=== PATIENT | male | born 1945 | race Caucasian/White ===

== ENCOUNTER 2022-04-02 10:16 | Inpatient (IN) | payer OTHER, MEDICARE ==
[~2022-04-02] VITALS: Ht 167.6 cm; Wt 62.7 kg
[~2022-04-02 10:16] MED LIST: ATOR40TA72 PO; CITA20TA26 PO; FLO0.4C PO; METO-292 PO; PANT40TA54 PO
[2022-04-02] MEDS ORDERED: iohexol 300mg/ml 100ml inj. ONE (12:59)
--- NOTE | 2022-04-02 13:44 | NUR ---
Patient symptoms have resolves so decision made with family, Dr Perez and Dr Philippe to not give Thrombolytic. Dr Guevara notified.
--- NOTE | 2022-04-02 14:00 | NUR ---
DR SULLIVAN AND ADRIAN AT BEDSIDE ,TELE NEURO MD RECOMMENDED TPA ,PT IS TALKING TO DR SULLIVAN AOX4 COHERENT ,NO CONFUSION NOTED ,NEGATIVE ON STROKE .PT FAMILY AT BEDSIDE ,FINALLY DECIDED NO ON TPA [employer] AT BEDSIDE WELL. PER DR CLEMENTS ,ADRIAN OKAY TO ACCESS THE CHEMO PORT AND DRAW BLD.WILL FOLLOW THE ORDERS.
[2022-04-02 14:06] LABS: BASOPHILS % (AUTO) 0.2 % (0-1); EOSINOPHILS % (AUTO) 0.1 % (0-6); HEMOGLOBIN 9.7 g/dl (14.0-17.9); LYMPHOCYTES # (AUTO) 0.3 X10'3 (1.1-4.8); LYMPHOCYTES % (AUTO) 4.5 % (21-51); MEAN CORPUSCULAR HGB CONC 32.5 g/dL (33.0-36.5); MEAN CORPUSCULAR VOLUME 80.1 FL (78-98); MEAN PLATELET VOLUME 7.1 FL (7.4-10.4); MONOCYTES # (AUTO) 0.6 X10'3 (0-0.9); MONOCYTES % (AUTO) 8.2 % (2-12); NEUTROPHILS # (AUTO) 6.8 X10'3 (1.8-7.7); PLATELET COUNT 354 X10'3 (140-440); RED BLOOD COUNT 3.75 X10'6 (4.70-6.10); RED CELL DISTRIBUTION WIDTH 16.1 % (11.5-14.5); WHITE BLOOD COUNT 7.8 X10'3 (4.5-11.0)
[2022-04-02] MEDS ORDERED: ondansetron/PF 4mg/2ml inj IV ONE (14:20)
[2022-04-02 14:21] LABS: APTT 27 SECONDS (22-32)
[2022-04-02 14:24] LABS: ALANINE AMINOTRANSFERASE 19 U/L (12-78); ALBUMIN 2.5 G/DL (3.4-5.0); ALBUMIN/GLOBULIN RATIO 0.7 (1.1-1.5); ALKALINE PHOSPHATASE 96 IU/L (46-116); ANION GAP 6 (8-16); ASPARTATE AMINO TRANSFERASE 14 U/L (10-37); BILIRUBIN,TOTAL 0.4 MG/DL (0.1-1.0); BLOOD UREA NITROGEN 13 MG/DL (7-18); BUN/CREATININE RATIO 21.3 (5.4-32.0); CALCIUM 9.1 MG/DL (8.5-10.1); CHLORIDE 99 MMOL/L (99-107); CREATININE 0.61 MG/DL (0.60-1.10); GLUCOSE 110 MG/DL (70-104); POTASSIUM 3.5 MMOL/L (3.5-5.1); SODIUM 134 MMOL/L (135-145); TOTAL CARBON DIOXIDE 29.2 MMOL/L (24-32); TOTAL PROTEIN 6.1 G/DL (6.4-8.2); eGFR > 90 ML/MIN
[2022-04-02] MEDS ORDERED: acetaminophen 1,000mg/100ml IV 100 ML IV ONE (14:40)
--- NOTE | 2022-04-02 15:53 | NUR ---
IR team to patient bedside, J Tube flushed serveral times with 3ml syringe. 60ml of tap water flushed through tube without resistance. Report given to RN and MD.
--- NOTE | 2022-04-02 17:30 | NUR ---
WHILE PRIMARY RN WAS AT BREAK ,PATRICA RELIEVING RN PAGED THE PICC LINE NURSE FOR IV PLACEMENT .
[2022-04-02] MEDS ORDERED: METO10TA3 PO (17:57)
[2022-04-02] MEDS ORDERED: PER5325T PO (17:59)
[2022-04-02] MEDS ORDERED: HYDROcodone/acetaminophen 5mg/325mg tablet PO PRN (18:30)
[2022-04-02] MEDS ORDERED: PERFLUTREN PROTEIN-A MICROSPHR (Optison) 0.22 MG/ML 3ML VIAL IV ONE (18:30)
[2022-04-02] MEDS ORDERED: bisacodyl 10mg suppository rectal RC PRN (18:30)
[2022-04-02] MEDS ORDERED: metoclopramide 5 mg/ml inj IV PRN (18:30)
[2022-04-02] MEDS ORDERED: HYDROcodone/acetaminophen 10/325mg tab PO PRN (18:30)
[2022-04-02] MEDS ORDERED: acetaminophen 650mg rectal suppository RC PRN (18:30)
[2022-04-02] MEDS ORDERED: acetaminophen 325mg tablet GT PRN ×2 (18:30)
[2022-04-02] MEDS ORDERED: potassium CL 10mEq/100ml bag 100 ML IV PRN (18:30)
[2022-04-02] MEDS ORDERED: magnesium 2GM in 50ml NS 50 ML IV PRN (18:30)
[2022-04-02] MEDS ORDERED: ondansetron/PF 4mg/2ml inj IV PRN (18:30)
[2022-04-02] MEDS ORDERED: magnesium Cl slow-release 64mg tablet PO PRN (18:30)
[2022-04-02] MEDS ORDERED: magnesium 4gm in 100ml NS 100 ML IV PRN (18:30)
[2022-04-02] MEDS ORDERED: ondansetron 4mg rapidly disintigrating tab PEG PRN (18:30)
[2022-04-02] MEDS ORDERED: mag hydrox/Alum hydrox/simeth 30ml oral suspension PO PRN (18:30)
[2022-04-02] MEDS ORDERED: magnesium hydroxide 30ml (MOM) UD suspension GT PRN (18:30)
[2022-04-02] MEDS ORDERED: POTASSIUM BICARB 20meq eff tab 20 MEQ TABLET.EFF PO PRN ×2 (18:30)
[2022-04-02 19:12] LABS: CLARITY,URINE SLIGHTLY CLOUDY (Clear); COLOR,URINE YELLOW (Yellow); GLUCOSE, URINE NEGATIVE (Neg); KETONES,URINE 15 mg/dl (Neg); LEUKOCYTE ESTERASE ,URINE TRACE (Neg); NITRITES, URINE NEGATIVE (Neg); OCCULT BLOOD,URINE NEGATIVE (Neg); PH,URINE >=9.0 (4.8-8.0); PROTEIN,URINE 30 mg/dl (Neg); UROBILINOGEN,URINE 0.2 E.U/dL (0.2-1.0)
[2022-04-02] MEDS ORDERED: iohexol 350MG/ML 100ml bottle IV ONE (19:13)
[2022-04-02 19:18] LABS: UA COLLECTION TYPE URINAL
[2022-04-02 19:21] LABS: MUCUS STRANDS FEW /LPF (Neg); SQUAMOUS EPITHELIAL CELL,UR MODERATE /LPF (FEW)
[2022-04-02 19:22] LABS: BACTERIA,URINE FEW /HPF (Neg)
[2022-04-02 19:23] LABS: AMORPHOUS PHOSPHATES 2+; RBC,URINE 0-2 /HPF (0-2)
[2022-04-02 19:37] LABS: MAGNESIUM 1.9 MG/DL (1.5-2.4); POTASSIUM 3.7 MMOL/L (3.5-5.1)
[2022-04-02] MEDS: K and/or MAG REPLACEMENT MC SCH (20:00)
[2022-04-02] MEDS ORDERED: docusate sod 100mg capsule PO SCH (20:00)
[2022-04-02] MEDS: potassium Cl 20mEq in NS 1,000 ML IV SCH (20:04)
--- NOTE | 2022-04-02 20:23 | NUR ---
PAGED DR. ALVARADO IN REGARDS OF FINDING ALTERNATIVE MED FOR FLOMAX. WAITNG FOR CALL BACK.
[2022-04-02] MEDS ORDERED: tamsulosin 0.4mg capsule PO SCH (21:00)
[2022-04-02] MEDS ORDERED: temazepam 15mg capsule PEG PRN (21:00)
[2022-04-02 21:59] VITALS: BP 141/55
[2022-04-03 02:00] VITALS: BP 142/62
[2022-04-03] MEDS ORDERED: iohexol 350 MG/1 ML 200ml bottle ONE (04:45)
[2022-04-03] MEDS ORDERED: docusate sodium 100mg/10ml UD cup JT SCH (06:49)
[2022-04-03 07:10] VITALS: BP 130/67
[2022-04-03 07:36] LABS: BASOPHILS % (AUTO) 0.2 % (0-1); EOSINOPHILS % (AUTO) 0.3 % (0-6); HEMOGLOBIN 9.1 g/dl (14.0-17.9); LYMPHOCYTES # (AUTO) 0.4 X10'3 (1.1-4.8); LYMPHOCYTES % (AUTO) 5.6 % (21-51); MEAN CORPUSCULAR HEMOGLOBIN 26.1 PG (27.0-31.0); MEAN CORPUSCULAR HGB CONC 32.3 g/dL (33.0-36.5); MEAN CORPUSCULAR VOLUME 80.9 FL (78-98); MEAN PLATELET VOLUME 7.6 FL (7.4-10.4); MONOCYTES # (AUTO) 0.7 X10'3 (0-0.9); MONOCYTES % (AUTO) 8.7 % (2-12); NEUTROPHILS # (AUTO) 6.6 X10'3 (1.8-7.7); NEUTROPHILS % (AUTO) 85.2 % (42-75); PLATELET COUNT 340 X10'3 (140-440); RED BLOOD COUNT 3.47 X10'6 (4.70-6.10); RED CELL DISTRIBUTION WIDTH 16.3 % (11.5-14.5); WHITE BLOOD COUNT 7.8 X10'3 (4.5-11.0)
--- NOTE | 2022-04-03 07:39 | NUR ---
TF/Malnutrition consult: Pt admitted w/ malfunctioning feeding tube. Attempted to visit pt though was sleeping and S/O not at bedside. Per ED note, pt had been vomiting [employer] after discharge 6 days ago. Presumably home TF has not been at goal if pt has been having recurrent emesis. Pt did have a significant amount of wt loss prior to receiving J-tube, an approximate 58% loss in seven months. Pt meets criteria for malnutrition given recent significant wt loss, likely inadequate nutrition delivery via Jtube r/t emesis, and moderate temporal wasting. See TF recs below. Will continue to monitor. Recommendations: 1) Continuous TF via jejunostomy using Vital AF with 60 mL/hr goal rate to provide 1440 mL total volume/day, 1728 kcal, 108 g protein, and 1168 mL water 2) No additional water flush at this time, Monitor serum Na 3) Prealbumin q Thursday/;Daily scaled weights 4) Routine bowel care 5) NPO per A[employer]IC[employer] CHEMIST recs HOME TF RECOMMENDATIONS: 1) Continuous TF via jejunostomy using Osmolite 1.2 or equivalent with 70 mL/hr goal rate. Begin at previously tolerated TF rate and advance by 20 mL Q8H as tolerated to goal rate 2) Additional 75 mL water flush Q4H 3) Outpatient RD to titrate to goal rate and adjust recommendations as appropriate based on patient's estimated nutrient needs Addendum: 04/03/22 at [address] Amended: Links added.
[2022-04-03 07:58] LABS: ALANINE AMINOTRANSFERASE 16 U/L (12-78); ALBUMIN 2.2 G/DL (3.4-5.0); ALBUMIN/GLOBULIN RATIO 0.6 (1.1-1.5); ALKALINE PHOSPHATASE 89 IU/L (46-116); ANION GAP 8 (8-16); ASPARTATE AMINO TRANSFERASE 14 U/L (10-37); BILIRUBIN,TOTAL 0.4 MG/DL (0.1-1.0); BLOOD UREA NITROGEN 15 MG/DL (7-18); BUN/CREATININE RATIO 21.1 (5.4-32.0); CALCIUM 8.7 MG/DL (8.5-10.1); CHLORIDE 103 MMOL/L (99-107); CREATININE 0.71 MG/DL (0.60-1.10); GLUCOSE 102 MG/DL (70-104); MAGNESIUM 2.2 MG/DL (1.5-2.4); POTASSIUM 4.2 MMOL/L (3.5-5.1); SODIUM 135 MMOL/L (135-145); TOTAL CARBON DIOXIDE 24.1 MMOL/L (24-32); TOTAL PROTEIN 5.6 G/DL (6.4-8.2); eGFR > 90 ML/MIN
[2022-04-03] MEDS: K and/or MAG REPLACEMENT MC SCH (08:00)
[2022-04-03] MEDS ORDERED: citalopram 20mg tablet PO SCH (08:00)
[2022-04-03] MEDS: tamsulosin 0.4mg capsule PO SCH ×2 (08:00→08:08)
[2022-04-03] MEDS: potassium Cl 20mEq in NS 1,000 ML IV SCH ×2 (08:06→14:30)
[2022-04-03 09:01] LABS: PREALBUMIN 14.7 MG/DL (19-36)
[2022-04-03 12:16] VITALS: BP 143/62
--- NOTE | 2022-04-03 14:16 | NUR ---
PAGER ID: [phone] MESSAGE: [phone] Katie Salazar: Dr. Kohler at bedside wondering if patient is able to DC home? thanks, momo [phone]
--- NOTE | 2022-04-03 14:39 | NUR ---
Page sent to Angio... [phone] Katie Salazar: is anyone available to de-access a port? thank you! momo
[2022-04-03] MEDS ORDERED: heparin sodium, porcine/PF 100unit/ml 5ML syringe IV ONE (14:55)
--- NOTE | 2022-04-03 16:11 | NUR ---
Deaccessed holly cath to R chest needle intact per protocol with 20ml NS flush and 5ml of 100units/1ml of Heparin flush per protocol. Pt tolerated procedure well. bandaide applied to holly cath site.
--- NOTE | 2022-04-03 16:24 | NUR ---
Patient stable and appropriate for discharge home with . IV removed, port-a-cath de-accessed. All discharge instructions and education given and reviewed with patient and , all questions answered.
== END 2022-04-03 16:55 | disposition home or self-care (01) | DRG 393 ==
LOC: ER 10:16 → ED HOLD 18:37 → EDBEDREQ 20:51 → PCU 3S 21:30
PROVIDERS: ADMIT Family Medicine; ATTEND Family Medicine
DX: K94.23 Gastrostomy malfunction (principal); E43 Unspecified severe protein-calorie malnutrition; E87.1 Hypo-osmolality and hyponatremia; R47.01 Aphasia; K94.13 Enterostomy malfunction; D64.9 Anemia, unspecified; E78.5 Hyperlipidemia, unspecified; F32.A Depression, unspecified; R47.1 Dysarthria and anarthria; G51.0 Bell's palsy; R63.4 Abnormal weight loss; I25.10 Atherosclerotic heart disease of native coronary artery without angina pectoris; K44.9 Diaphragmatic hernia without obstruction or gangrene; N40.0 Benign prostatic hyperplasia without lower urinary tract symptoms; I25.2 Old myocardial infarction; Z85.01 Personal history of malignant neoplasm of esophagus; Z85.028 Personal history of other malignant neoplasm of stomach; Z86.73 Personal history of transient ischemic attack (TIA), and cerebral infarction without residual deficits; Z68.22 Body mass index [BMI] 22.0-22.9, adult; Z90.49 Acquired absence of other specified parts of digestive tract; Z87.891 Personal history of nicotine dependence; Z79.899 Other long term (current) drug therapy
CPT/HCPCS: 36415; 70450; 71045; 74176; 80053; 81001; 82948; 83735; 84132; 84134; 84484; 85025; 85610; 85730; 87088; 92508; 92616; 93005; 93308; 97161; 97530; 99285; A6213; G0378; J0131; J1642; J2405; J3480; J3490; Q9967

== ENCOUNTER 2022-04-10 11:59 | Emergency (ER) | payer OTHER, MEDICARE ==
[~2022-04-10 11:59] MED LIST changes: -ATOR40TA72 PO; -METO-292 PO; +METO10TA3 PO; +PER5325T PO
--- NOTE | 2022-04-10 13:21 | NUR ---
pt brought in to room by surgeon judah evaluated and then referred to interventional radiology. interventional radiologist evaluated patient pulled j tube and sent patient home without evaluation by er nurse or er md. dr christian notified and will dictate a note.
== END 2022-04-10 13:47 | disposition home or self-care (01) ==
LOC: ER 11:59
DX: Z00.8 Encounter for other general examination (principal); Z53.21 Procedure and treatment not carried out due to patient leaving prior to being seen by health care provider